=== PATIENT | female | born 1990 | race Caucasian/White ===

== ENCOUNTER 2025-02-15 08:47 | Outpatient (AMB) | payer BC, SELFPAY ==
[2025-02-15 09:34] VITALS: BP 127/81; PULSE 66; RESP 17; TEMP 36.6; O2SAT 96
--- NOTE | 2025-02-15 09:34 | GYNCLNT_ITS ---
Vital Signs 02/15/25 09:34 Weight 77.337 kg Weight Measurement Method Standing Scale BP 127/81 Blood Pressure Source Automatic Cuff Blood Pressure Location Right Upper Arm Position Sitting Respiration 17 Pulse 66 Pulse Source Monitor Temp 97.8 F Temp Source Temporal Artery Scan Pulse Oximetry (%) 96 Oxygen Delivery Method Room Air Allergies/Home Meds Allergies & Medications Allergies No Known Allergies Allergy (Verified 02/15/25 09:35) Intake Visit Data Collection New Patient or Established: New Patient (never been to [facility]) Reason for Visit:: PRECONCEPTION Consent obtained for Telemed Visit: No Seen by Clinical Staff ONLY (RN/MA): No 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 Concrete Wall Grinder Operator's name/title: SARAH Do You Feel Safe at Home: Yes Authorities Contacted: N/A PCP or OBGYN visit in last 3 months: No Hx Now: No Are you currently on any form of Control: Yes Last menstrual period: 01/29/25 Pain Present Currently: No Pain Scale Used: Kilpatrick-Martinez/Numerical Pain scale:: 0 Smoking Status Smoking Status: Never smoker 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 1. Little interest or pleasure in doing things: not at all 2. Feeling down, depressed, or hopeless: not at all Total score: 0 PHQ-9 3. Trouble falling or staying asleep, or sleeping too much: Not at all 4. Feeling tired or having little energy: Not at all 5. Poor appetite or overeating: Not at all 6. Feeling bad about yourself - or that you are a failure or have let yourself or your family down: Not at all 7. Trouble concentrating on things, such as reading the newspaper or watching television: Not at all 8. Moving or speaking so slowly that other people could have noticed? - Or the opposite - being so fidgety or restless that you have been moving around a lot more than usual: not at all 9. Thoughts that you would be better off or of hurting yourself in some way: Not at all Total score: 0 If you checked off any problems, how difficult have these problems made it for you to do your work, take care of things at home, or get along with other people?: not difficult at all Source: Developed by Drs. Mark Granados, April Sharif, Jaspal Romero and colleagues, with an educational bing from [employer]. Social History Living Situation History Marital Status: Lives With: Family Housing: House Tobacco History Smoking Status: Never smoker Alcohol History Alcohol Intake: Never Domestic Abuse History Do You Feel Safe at Home: Yes History of Present Illness HPI Narrative Stephanie Limon, a 34-year-old female with a history of 3 previous C-sections ( 3, para 3), presents for discussion regarding the risks of future pregnancies given her obstetrical history. The patient's first was performed in [place] due to premature rupture of membranes with no amniotic fluid present at the time of admission. All three of her C-sections were performed in [place], with a transverse incision. She denies any other significant gynecological history. Stephanie is seeking information about the potential risks associated with having another after multiple C-sections. She has not reported any current symptoms or complaints related to her reproductive health. Obstetric History: - GPAL: A0 L3 - Three previous sections, all performed in [place] - First section due to ruptured membranes and absence of amniotic fluid - Transverse incision for all sections Surgical History: - Three previous sections, all performed in [place] Medications and Supplements: - vitamin Social History: - Country of Origin: Patient received previous medical care in [place] ROS: No current symptoms or complaints related to reproductive health reported. Exam General General Appearance: alert, in no apparent distress and healthy appearing Head Head exam: atraumatic Neck Neck exam: Present normal inspection and trachea midline Chest Chest inspection: Present normal inspection and symmetric chest wall rise External exam: Present normal external exam; Absent tenderness Neuro Neurological exam: Present oriented X3 Psych Psychiatric exam: Present normal affect and normal mood Office Procedures OB Clinic LOC & Office Proc's Nursing/Assessment Patient Status: Established Patient OB Clinic Nursing Assessment: Medication Reconciliation, Update PMH in EMR and Vital Signs OB Clinic Coordination of Care: Complex Care and Chronic Disease 1-5, Consent,records obtained, informed consent, Education Simp Pt/Fam and 4+ Authorizations needed Established Patient Charge Established Patient Point Assignment: 100 Established Patient Point Charge: EP Level 3 (80-115) Assessment & Plan Diagnosis / Problem List (1) Pre-conception counseling: Status: Acute Plan History of multiple sections Assessment: Patient has a history of 3 previous sections performed in [place]. - First due to premature rupture of membranes with oligohydramnios - Subsequent C-sections likely repeat procedures - incision reported to be transverse - Multiple sections increase risk of complications in future pregnancies Plan: - Counseled patient on risks associated with future pregnancies after multiple sections: ? Placenta accreta spectrum disorders (5-10% risk) ? labor (risk of onset around 34-35 weeks gestation) ? growth restriction ? Potential fertility issues due to intrauterine adhesions - Advised that is still possible, with some patients having up to 5-6 sections - Recommended vitamin supplementation prior to conception - Discussed need for close monitoring and additional testing during any future - Follow-up as needed if patient decides to pursue Additional Assessment Risks of Multiple Deliveries (>= prior sections) 1. Placenta-related complications: * Placenta previa: Increased risk of implantation over cervical os * Placenta accreta spectrum (PAS): Higher risk of abnormal placental attachment, especially if previa present * Risk of massive hemorrhage, hysterectomy, and blood transfusion 2. Surgical risks: * Intraoperative adhesions: Can increase operative time and injury risk * Bladder and bowel injury: Due to distorted anatomy and adhesions * Uterine dehiscence or rupture: Especially with attempted labor in subsequent pregnancies * Extended operative time and longer hospital stay 3. Maternal morbidity: * hemorrhage * Infection (endometritis, wound complications) * Need for hysterectomy (increases with each ) 4. Future fertility considerations: * Infertility or subfertility due to uterine scarring or Asherman's syndrome * Higher risk of ectopic Estimated Risks (ACOG/Lonnie et al., 2006): # of C-Sections Risk of Placenta Accreta (with previa) Risk of Hysterectomy 1 ~3% ~0.65% 2 ~11% ~1.5% 3 ~40% ~2.1% >= >60% ~3.5%
== END 2025-02-15 10:16 | disposition home or self-care (01) ==
PROVIDERS: PCP Nurse Practitioner Family; Referring Provider Nurse Practitioner Family; Supervising Provider Obstetrics & Gynecology; Visit Provider Obstetrics & Gynecology
DX: Z31.69 Encounter for other general counseling and advice on procreation (principal); Z87.59 Personal history of other complications of pregnancy, childbirth and the puerperium
CPT/HCPCS: 99213; G0463